=== PATIENT | female | born 1990 | race African-American/Black ===

== ENCOUNTER 2019-03-09 13:02 | Emergency (ER) | payer OTHER ==
[~2019-03-09] VITALS: Ht 160 cm; Wt 65.8 kg
[2019-03-09] MEDS ORDERED: NORFLEX100 MG PO (13:20)
[2019-03-09] MEDS ORDERED: NAPROSYN500 MG PO (13:20)
[2019-03-09 13:39] VITALS: BP 127/79
== END 2019-03-09 13:40 | disposition home or self-care (01) ==
LOC: ER 13:02
DX: S39.012A Strain of muscle, fascia and tendon of lower back, initial encounter (principal); J45.909 Unspecified asthma, uncomplicated; Z88.0 Allergy status to penicillin; Z88.5 Allergy status to narcotic agent; X58.XXXA Exposure to other specified factors, initial encounter; Y92.89 Other specified places as the place of occurrence of the external cause; Y93.89 Activity, other specified; Y99.8 Other external cause status